=== PATIENT | female | born 1975 | race Caucasian/White ===

== ENCOUNTER 2023-05-28 09:14 | Inpatient (IN) | payer OTHER ==
[~2023-05-28] VITALS: Ht 152.4 cm; Wt 81.6 kg
[2023-05-28 15:57] LABS: INR 1.02; PROTHROMBIN TIME 10.7 SECONDS (9.0-11.5)
[2023-05-31] MEDS ORDERED: POVIDONE-IODINE 118 ML BOTT TOP ONE ×2 (09:02→10:45)
[2023-05-31] MEDS ORDERED: CEFOXITIN SODIUM 2,000 MG VIAL IV ONE ×2 (09:02→11:00)
[2023-05-31] MEDS ORDERED: MEPERIDINE HCL/PF 50 MG/ML VIAL IV SCH (12:00)
[2023-05-31] MEDS ORDERED: PROMETHAZINE HCL 25 MG/ML AMPUL IV SCH (12:00)
[2023-05-31] MEDS ORDERED: GABAPENTIN 300 MG CAPSULE PO SCH (13:00)
[2023-05-31] MEDS ORDERED: SIMETHICONE 125 MG CAPSULE PO SCH (13:00)
[2023-05-31 17:22] LABS: HEMATOCRIT 35.4 % (36.0-45.00); HEMOGLOBIN 11.4 g/dL (12.0-15.00); MEAN CELL VOLUME 87.4 fL (80.00-100.00); MEAN CORPUSCULAR HEMOGLOBIN 28.2 pg (27.00-32.0); MEAN CORPUSCULAR HGB CONC 32.3 g/dl (32.0-36.0); PLATELET COUNT 350 K/uL (150-450); RED BLOOD COUNT 4.05 M/uL (4.00-6.00); RED CELL DISTRIBUTION WIDTH 17.3 % (11.5-14.5)
[2023-06-01] MEDS ORDERED: IBUprofen 800 MG TABLET PO SCH (02:00)
[2023-06-01] MEDS ORDERED: POLYETHYLENE GLYCOL 3350 17 GM BLIST.PACK PO SCH (09:00)
[2023-06-02] MEDS ORDERED: GABAPENTIN300 MG PO (06:51)
[2023-06-02] MEDS ORDERED: POLY119PG PO (06:52)
[2023-06-02] MEDS ORDERED: IBUPROFEN800 MG PO (06:52)
[2023-06-02] MEDS ORDERED: SIMETHICONE125 M1 PO (06:52)
== END 2023-06-02 08:37 | disposition home or self-care (01) | DRG 743 ==
LOC: OB/GYN 05-31 05:30 → O/R 05-31 05:30 → OB/GYN 05-31 11:37 → SURH 05-31 12:30 → OB/GYN 06-01 20:28
PROVIDERS: ADMIT Obstetrics & Gynecology; ATTEND Obstetrics & Gynecology
PROC: 0UT70ZZ Resection of Bilateral Fallopian Tubes, Open Approach (ICD-10-PCS; 2023-05-31)
PROC: 0UT90ZZ Resection of Uterus, Open Approach (ICD-10-PCS; principal; 2023-05-31 12:30)
DX: D25.1 Intramural leiomyoma of uterus (principal); D25.0 Submucous leiomyoma of uterus; N72 Inflammatory disease of cervix uteri; Z20.822 Contact with and (suspected) exposure to COVID-19